=== PATIENT | male | born 1955 | race Caucasian/White ===

== ENCOUNTER 2022-10-27 15:08 | Outpatient (CLI) | payer MEDICARE, OTHER, SELFPAY | END 2022-10-27 15:09 | disposition home or self-care (01) | LOC: AMB 12-14 16:59 | PROVIDERS: PCP Family Medicine; Visit Provider Emergency Medicine Emergency Medical Services | DX: R56.9 Unspecified convulsions (principal) | CPT/HCPCS: A0425; A0427 ==

== ENCOUNTER 2022-10-27 15:45 | Emergency (ER) | payer MEDICARE, OTHER, SELFPAY ==
[2022-10-27] VITALS (13 sets, daily range): BP systolic 125–139; BP diastolic 62–97; PULSE 49–82; TEMP 36.4; O2SAT 95–99; BMI 24.4
[2022-10-27 16:23] LABS: Troponin, Point-of-Care* 0.01 ng/ml (0.01-0.04)
--- NOTE | 2022-10-27 16:31 | CRLHL7_ITS ---
For Patients: As a result of the Century Cures Act, medical imaging exams and procedure reports are released immediately into your electronic medical record. You may view this report before your referring provider. If you have questions, please contact your health care provider. INDICATION: Seizure TECHNIQUE: CT head without contrast. COMPARISON: None FINDINGS: CSF spaces: Within normal limits for age. Brain parenchyma: The barragan-white differentiation is normal. No sign of mass, hemorrhage, or midline shift. Skull base and calvarium: The visualized paranasal sinuses and mastoid air cells demonstrate no acute or significant findings. The visualized orbits are grossly unremarkable. No skull fractures. IMPRESSION: Unremarkable noncontrast head CT. Dictated by Ricky West MD @ 10/27/2022 5:46:51 PM Please note that all CT scans at this facility use dose modulation, iterative reconstruction, and/or weight-based dosing when appropriate to reduce radiation dose to as low as reasonably achievable. Dictated by: Ricky West MD @ 10/27/2022 17:46:59 (Electronically Signed)
--- NOTE | 2022-10-27 16:33 | ED.GENADULT ---
HPI - General Adult General Chief complaint: Seizure Stated complaint: Seizures Time Seen by Provider: 10/27/22 16:06 History of Present Illness HPI narrative: This 67-year-old male comes in by ambulance because of an event that looked to bystanders to be like a seizure. Patient states that he was in [employer] and notice that the neon lights started to bother him. He states that he has had this kind of sensitivity in the past. He was attempting to get out of there and began to feel lightheaded. On the way back to his car he collapsed and had loss of consciousness. Bystanders said he had seizure-like activity. The patient states that he remembers waking up in the ambulance. An IV was established and he did receive a dose of Ativan. The patient states that he had a similar situation when he lived in [place] some years ago. He notes that he has sensitivity to neon lights. He states that he is taking Effexor and wonders if this medicine is contributing to his symptoms. He is currently tapering off from 150 mg daily now to 112.5 mg daily. He did not have any injury. He does not report a headache. He states that he is otherwise healthy. Related Data Home Medications Medication Instructions Recorded Confirmed alendronate 70 mg tablet mg PO 10/27/22 chlorthalidone 25 mg tablet mg 10/27/22 levothyroxine 175 mcg tablet mcg 10/27/22 (Synthroid) losartan 100 mg tablet mg 10/27/22 pramipexole 0.125 mg tablet mg 10/27/22 ropinirole 0.25 mg tablet mg 10/27/22 ropinirole 1 mg tablet mg 10/27/22 rosuvastatin 20 mg tablet mg 10/27/22 trazodone 50 mg tablet mg 10/27/22 venlafaxine 150 mg mg PO 10/27/22 capsule,extended release 24 hr venlafaxine 37.5 mg mg PO 10/27/22 capsule,extended release 24 hr Previous Rx's Medication Instructions Recorded lorazepam 0.5 mg tablet (Ativan) 0.5 mg PO BID PRN #10 tabs 10/27/22 Allergies Allergy/AdvReac Type Severity Reaction Status Date / Time No Known Drug Allergies Allergy Verified 10/27/22 15:53 Review of Systems Status of ROS: Reports: 10 or more systems reviewed and unremarkable except as noted in History and below Narrative: Constitutional: No fevers, no weight gain or loss. Eyes: No discharge. No vision changes. HENT: No congestion, no sore throat, no ear pain. Cardiovascular: No chest pain, no palpitations. Respiratory: No shortness of breath, no wheezes, no cough. Gastrointestinal: No abdominal pain, no vomiting, no diarrhea. Genitourinary: No dysuria, no hematuria. Musculoskeletal: Normal range of motion. Skin: No rashes, no pruritis. Neurological: No dizziness, weakness, sensory change, speech change. Endo/Heme/Allergies: No bruising or bleeding. No polydipsia. Pysch: no suicidality, no anxiety, no insomnia. All other systems reviewed and are negative. Exam Narrative: Exam Narrative: Constitutional: Well-developed, well-nourished, no acute distress. HEENT: Normocephalic, atraumatic. Neck: Normal range of motion. Nontender. Supple. Heart: Regular. No murmurs. Normal rate. Intact distal pulses. Lungs: Clear to auscultation. No chest discomfort. No wheezes, rhonchi, or rales. Abdomen: Normal bowel sounds. Nontender. No rebound tenderness. Genitalia: Deferred. Back: No midline tenderness. Normal range of motion. Extremities: Normal range of motion. No injury. Skin: Intact. No rash. Warm. No erythema or pallor. Neurologic: No altered sensation. No weakness. Alert and oriented. Psychiatric: No suicidality. No anxiety or depression. No insomnia. Nursing notes and vitals signs are reviewed. Const: Vital Signs, click to edit/add: Vital Signs - 24 hr 10/27/22 15:47 10/27/22 16:00 10/27/22 16:13 Temperature 97.6 F Pulse Rate 77 Pulse Rate [Right] 55 L Blood Pressure Blood Pressure [Le ft Upper Arm] 139/97 H 125/62 Pulse Oximetry 96 96 Oxygen Delivery Me thod Room Air 10/27/22 16:15 10/27/22 16:30 10/27/22 16:31 Temperature Pulse Rate 64 50 L 49 L Pulse Rate [Right] Blood Pressure 136/73 Blood Pressure [Le ft Upper Arm] Pulse Oximetry 95 96 96 Oxygen Delivery Me thod 10/27/22 16:45 10/27/22 17:00 10/27/22 17:01 Temperature Pulse Rate 82 77 76 Pulse Rate [Right] Blood Pressure 127/67 Blood Pressure [Le ft Upper Arm] Pulse Oximetry 95 98 97 Oxygen Delivery Me thod 10/27/22 17:15 10/27/22 17:45 Temperature Pulse Rate 63 80 Pulse Rate [Right] Blood Pressure Blood Pressure [Le ft Upper Arm] Pulse Oximetry 95 99 Oxygen Delivery Me thod Course Vital Signs Vital signs: Initial Vital Signs Temperature 97.6 F 10/27/22 15:47 Temperature Source Temporal Artery Scan 10/27/22 15:47 Pulse Rate 55 L 10/27/22 15:47 Blood Pressure 139/97 H 10/27/22 15:47 Blood Pressure Mean 111 10/27/22 15:47 Blood Pressure Position Supine 10/27/22 15:47 Pulse Oximetry 96 10/27/22 15:47 Oxygen Delivery Method 10/27/22 15:47 Vital Signs Temperature 97.6 F 10/27/22 15:47 Pulse Rate 55 L 10/27/22 15:47 Blood Pressure 139/97 H 10/27/22 15:47 Pulse Oximetry 96 10/27/22 15:47 Oxygen Delivery Method 10/27/22 15:47 Temperature 97.6 F 10/27/22 15:47 Pulse Rate 80 10/27/22 17:45 Blood Pressure 127/67 10/27/22 17:01 Pulse Oximetry 99 10/27/22 17:45 Oxygen Delivery Method 10/27/22 15:47 Medical Decision Making MDM Narrative Medical decision making narrative: This patient comes in with symptoms that are suspicious for a seizure that is induced by the lytes in a large business facility. He has had symptoms like this in the past. He is taking Effexor which can be contributing to this occurrence. He is weaning off of this medicine slowly and has ongoing relationship with his primary physician in this regard. He did receive a dose of Ativan prior to arrival. CT scan of his head and lab results here returned with normal findings. He is okay to be discharged home with his . I did provide prescription for some tablets of Ativan. He understands that this is not a good long-term plan but may give him some relief of his anxiety symptoms as well as seizure preventative benefit. Lab Data Labs: Lab Results 12/08/22 12/08/22 12/08/22 Range/Units 16:03 16:03 16:03 WBC 7.64 (4.50-11.00) K/uL RBC 4.15 L (4.30-5.90) m/uL Hgb 13.9 (13.5-17.5) gm/dL Hct 40.9 (37.0-53.0) % MCV 99 (80-100) fL MCH 34 (26-34) pg MCHC 34 (32-36) gm/dL RDW Coeff of Mina 12.0 (11.5-15.5) % Plt Count 195 (140-440) K/uL Neut % (Auto) 67.0 (42.0-72.0) % Lymph % (Auto) 21.9 (20-44) % [place] % (Auto) 8.9 (0.0-11.0) % Eos % (Auto) 1.6 (0.0-7.0) % Baso % (Auto) 0.3 (0.0-3.0) % Neut # (Auto) 5.13 (1.7-7.0) K/uL Lymph # (Auto) 1.67 (0.90-2.90) K/uL [place] # (Auto) 0.70 (0.00-0.90) K/UL Eos # (Auto) 0.12 (0.00-0.50) K/uL Baso # (Auto) 0.02 (0.00-0.30) K/uL Abs Immat Gran (auto) 0.02 (0.00-0.30) K/uL Imm/Tot Granulo (auto) 0.3 % Sodium 139 (135-149) mmol/L Potassium 3.4 L (3.6-5.1) mmol/L Chloride 103 (96-114) mmol/L Carbon Dioxide 25 (20-32) mmol/L BUN 21 (7-30) mg/dL Creatinine 1.1 (0.5-1.5) mg/dL Estimated Creat Clear 72.51 Estimated GFR 74 ml/min Glucose 103 (60-115) mg/dL Calcium 7.2 L (8.4-10.6) mg/dL C-Reactive Protein < 0.5 L (0.5-1.0) mg/dL Urine Opiates Screen (Negative) Ur Oxycodone Screen (Negative) Urine Methadone Screen (Negative) Ur Propoxyphene Screen (Negative) Ur Barbiturates Screen (Negative) U Tricyclic Antidepress (Negative) Ur Phencyclidine Scrn (Negative) Ur Amphetamines Screen (Negative) U Methamphetamines Scrn (Negative) U Benzodiazepines Scrn (Negative) Urine Cocaine Screen (Negative) U Marijuana (THC) Screen (Negative) Ur Drug Screen Comment POC Troponin I (0.01-0.04) ng/ml 10/27/22 10/27/22 Range/Units 16:22 17:10 WBC (4.50-11.00) K/uL RBC (4.30-5.90) m/uL Hgb (13.5-17.5) gm/dL Hct (37.0-53.0) % MCV (80-100) fL MCH (26-34) pg MCHC (32-36) gm/dL RDW Coeff of Mina (11.5-15.5) % Plt Count (140-440) K/uL Neut % (Auto) (42.0-72.0) % Lymph % (Auto) (20-44) % [place] % (Auto) (0.0-11.0) % Eos % (Auto) (0.0-7.0) % Baso % (Auto) (0.0-3.0) % Neut # (Auto) (1.7-7.0) K/uL Lymph # (Auto) (0.90-2.90) K/uL [place] # (Auto) (0.00-0.90) K/UL Eos # (Auto) (0.00-0.50) K/uL Baso # (Auto) (0.00-0.30) K/uL Abs Immat Gran (auto) (0.00-0.30) K/uL Imm/Tot Granulo (auto) % Sodium (135-149) mmol/L Potassium (3.6-5.1) mmol/L Chloride (96-114) mmol/L Carbon Dioxide (20-32) mmol/L BUN (7-30) mg/dL Creatinine (0.5-1.5) mg/dL Estimated Creat Clear Estimated GFR ml/min Glucose (60-115) mg/dL Calcium (8.4-10.6) mg/dL C-Reactive Protein (0.5-1.0) mg/dL Urine Opiates Screen Negative (Negative) Ur Oxycodone Screen Negative (Negative) Urine Methadone Screen Negative (Negative) Ur Propoxyphene Screen Negative (Negative) Ur Barbiturates Screen Negative (Negative) U Tricyclic Antidepress Negative (Negative) Ur Phencyclidine Scrn Negative (Negative) Ur Amphetamines Screen Negative (Negative) U Methamphetamines Scrn Negative (Negative) U Benzodiazepines Scrn Negative (Negative) Urine Cocaine Screen Negative (Negative) U Marijuana (THC) Screen POSITIVE A* (Negative) Ur Drug Screen Comment See Note POC Troponin I 0.01 (0.01-0.04) ng/ml Imaging Data CT scan - head: Radiologist's impression: Unremarkable noncontrast head CT. ECG Data Attestation: I personally reviewed and interpreted this ECG as follows: Interpretation: Normal sinus rhythm with premature ventricular complexes. Rate is 100 beats per minute. There are no ST or T-wave abnormalities. Discharge Plan Discharge Clinical Impression: Generalized seizure Patient Disposition: Home, Self-Care Condition: Stable Additional Instructions: Follow-up with primary physician to review medications. Return if recurrent or worsening symptoms happen. Prescriptions: New lorazepam [Ativan] 0.5 mg tablet 0.5 mg PO BID PRNQty: 10 0RF No Action levothyroxine [Synthroid] 175 mcg tablet venlafaxine 37.5 mg capsule,extended release 24hr PO ropinirole 1 mg tablet trazodone 50 mg tablet alendronate 70 mg tablet PO venlafaxine 150 mg capsule,extended release 24hr PO chlorthalidone 25 mg tablet ropinirole 0.25 mg tablet pramipexole 0.125 mg tablet losartan 100 mg tablet rosuvastatin 20 mg tablet Follow Up/Referrals: Carmen Kingston PA-C [Primary Care Provider] - Stand Alone Forms: [email or web address] Info Instructions
[2022-10-27 16:45] LABS: Basophils Absolute Auto 0.02 K/uL (0.00-0.30); Basophils Percent Auto 0.3 % (0.0-3.0); Eosinophils Absolute Auto 0.12 K/uL (0.00-0.50); Eosinophils Percent Auto 1.6 % (0.0-7.0); Hematocrit 40.9 % (37.0-53.0); Hemoglobin* 13.9 gm/dL (13.5-17.5); Immature Granulocytes Abs Auto 0.02 K/uL (0.00-0.30); Immature Granulocytes Pct Auto 0.3 %; Lymphocytes Absolute Auto 1.67 K/uL (0.90-2.90); Lymphocytes Percent Auto 21.9 % (20-44); Mean Corpuscular HGB Conc 34 gm/dL (32-36); Mean Corpuscular Hemoglobin 34 pg (26-34); Mean Corpuscular Volume 99 fL (80-100); Monocytes Percent Auto 8.9 % (0.0-11.0); Neutrophils Absolute Auto 5.13 K/uL (1.7-7.0); Platelet Count* 195 K/uL (140-440); Red Blood Count 4.15 m/uL (4.30-5.90); White Blood Count* 7.64 K/uL (4.50-11.00)
[2022-10-27 16:46] LABS: Slide Review Reflex No
[2022-10-27 16:48] LABS: Chloride* 103 mmol/L (96-114); Potassium* 3.4 mmol/L (3.6-5.1); Sodium* 139 mmol/L (135-149)
[2022-10-27 16:51] LABS: Blood Urea Nitrogen* 21 mg/dL (7-30); Carbon Dioxide* 25 mmol/L (20-32); Creatinine* 1.1 mg/dL (0.5-1.5); Est. Creatinine Clearance* 72.51; Estimated Glomerular Filt Rate 74 ml/min; Glucose* 103 mg/dL (60-115)
[2022-10-27 16:52] LABS: Calcium* 7.2 mg/dL (8.4-10.6)
[2022-10-27 16:58] LABS: C Reactive Protein* < 0.5 mg/dL (0.5-1.0)
[2022-10-27] MEDS: 0.9 % SODIUM CHLORIDE 500 ML 500 ML IV (17:22)
[2022-10-27 17:37] LABS: Amphetamine Screen Urine Negative (Negative); Barbiturate Screen Urine Negative (Negative); Benzodiazepines Screen Urine Negative (Negative); Cocaine Screen Urine Negative (Negative); Methadone Screen Urine Negative (Negative); Methamphetamines Screen Urine Negative (Negative); Opiate Screen Urine Negative (Negative); Oxycodone Screen Urine Negative (Negative); Phencyclidine Screen Urine Negative (Negative); Tricyclic Antidepressant Urine Negative (Negative)
[2022-10-27 17:45] LABS: Cannabinoid Screen Urine POSITIVE (Negative)
== END 2022-10-27 18:25 | disposition home or self-care (01) ==
PROVIDERS: Emergency Provider Emergency Medicine Emergency Medical Services; PCP Family Medicine
DX: R56.9 Unspecified convulsions (principal)
CPT/HCPCS: 36415; 70450; 80048; 80306; 84484; 85025; 86140; 99284; 99285; A0425; A0427; J7120

== ENCOUNTER 2023-08-22 14:15 | Emergency (ER) | payer MEDICARE, SELFPAY ==
[2023-08-22] VITALS (21 sets, daily range): BP systolic 105–146; BP diastolic 79–102; PULSE 37–65; RESP 18; TEMP 37; O2SAT 78–100; BMI 23.7
--- NOTE | 2023-08-22 14:51 | ED.GENADULT ---
HPI - General Adult General Chief complaint: Weakness Stated complaint: Slurred speech, numb legs Time Seen by Provider: 08/22/23 14:31 History of Present Illness HPI narrative: This 67-year-old male comes in because of change in his speech and feeling off balance. He has been having symptoms like this over the past several months and was at a psychiatric appointment today. He was sent home from this appointment. His took him and brought him here for evaluation because of feeling that his speech is different. At home today he states that he fell a going up stairs. He did not injure himself but states that he says his legs did not want to cooperate to move in the right direction to maintain his balance. He is on several medications. He states that some of them are new but he was unable to clarify which medicine her medicines are new for him. Related Data Home Medications Medication Instructions Recorded Confirmed alendronate 70 mg tablet mg PO 10/27/22 chlorthalidone 25 mg tablet mg 10/27/22 levothyroxine 175 mcg tablet 175 mcg PO DAILY 10/27/22 08/22/23 (Synthroid) losartan 100 mg tablet 100 mg PO DAILY 10/27/22 08/22/23 pramipexole 0.125 mg tablet mg 10/27/22 ropinirole 0.25 mg tablet 3 mg PO DAILY 10/27/22 08/22/23 ropinirole 1 mg tablet mg 10/27/22 rosuvastatin 20 mg tablet 20 mg PO DAILY 10/27/22 08/22/23 trazodone 50 mg tablet mg 10/27/22 venlafaxine 150 mg mg PO 10/27/22 capsule,extended release 24 hr venlafaxine 37.5 mg mg PO 10/27/22 capsule,extended release 24 hr bupropion HCl 300 mg 24 hr tablet, 300 mg PO DAILY 08/22/23 08/22/23 extended release clonazepam 0.5 mg tablet 0.5 mg PO QPM 08/22/23 08/22/23 fluvoxamine 100 mg 200 mg PO DAILY 08/22/23 08/22/23 capsule,extended release 24 hr hydrochlorothiazide 12.5 mg tablet 25 mg PO DAILY 08/22/23 08/22/23 meloxicam 15 mg tablet 15 mg PO DAILY PRN 08/22/23 08/22/23 propranolol 20 mg tablet 20 mg PO BID 08/22/23 08/22/23 Previous Rx's Medication Instructions Recorded lorazepam 0.5 mg tablet (Ativan) 0.5 mg PO BID PRN #10 tabs 10/27/22 Allergies Allergy/AdvReac Type Severity Reaction Status Date / Time No Known Drug Allergies Allergy Verified 08/22/23 14:24 Review of Systems Status of ROS: Reports: 10 or more systems reviewed and unremarkable except as noted in History and below Narrative: Constitutional: No fevers, no weight gain or loss. Eyes: No discharge. No vision changes. HENT: No congestion, no sore throat, no ear pain. Cardiovascular: No chest pain, no palpitations. Respiratory: No shortness of breath, no wheezes, no cough. Gastrointestinal: No abdominal pain, no vomiting, no diarrhea. Genitourinary: No dysuria, no hematuria. Musculoskeletal: Normal range of motion. Skin: No rashes, no pruritis. Neurological: No dizziness, weakness, sensory change. The patient's states that his speech is different.. Endo/Heme/Allergies: No bruising or bleeding. No polydipsia. Pysch: no suicidality, no anxiety, no insomnia. All other systems reviewed and are negative. PFSH PFSH Social History Smoking Status: Never smoker Do you use any of these nicotine containing products: None Second hand tobacco smoke exposure: No How often do you have a drink containing alcohol: 4 or more times a week How many standard drinks containing alcohol do you have on a typical day: 1 or 2 How often do you have six or more drinks on one occasion: Daily or almost daily AUDIT-C Alcohol total score: 8 Non-prescribed substance use: marijuana (any form) service: No Exam Narrative: Exam Narrative: Constitutional: Well-developed, well-nourished, no acute distress. HEENT: Normocephalic, atraumatic. Neck: Normal range of motion. Nontender. Supple. Heart: Regular. No murmurs. Normal rate. Intact distal pulses. Lungs: Clear to auscultation. No chest discomfort. No wheezes, rhonchi, or rales. Abdomen: Normal bowel sounds. Nontender. No rebound tenderness. Genitalia: Deferred. Back: No midline tenderness. Normal range of motion. Extremities: Normal range of motion. No injury. Skin: Intact. No rash. Warm. No erythema or pallor. Neurologic: No altered sensation. No weakness. Alert and oriented. No facial asymmetry. Tongue is midline. [id number]-[id number] is normal. Speech is understandable and seems to be typical for his baseline. The patient's states that there are some episodes where his speech is altered. [place] strength is equal bilaterally. No pronator drift. He is able to raise each leg from the bed to my hand. Psychiatric: No suicidality. No anxiety or depression. No insomnia. Nursing notes and vitals signs are reviewed. Const: Vital Signs, click to edit/add: Vital Signs - 24 hr 08/22/23 14:27 08/22/23 14:34 08/22/23 14:35 Temperature 98.6 F Pulse Rate 65 59 L Pulse Rate [Pulse Oximeter] 64 Respiratory Rate 18 Blood Pressure 122/90 H Blood Pressure [Le ft Upper Arm] 134/102 H Pulse Oximetry 97 97 97 [facility] Room Air 08/22/23 14:45 08/22/23 15:06 08/22/23 15:07 Temperature Pulse Rate 61 60 Pulse Rate [Pulse Oximeter] Respiratory Rate Blood Pressure 146/88 H Blood Pressure [Le ft Upper Arm] Pulse Oximetry 96 90 98 [facility] 08/22/23 15:15 08/22/23 15:30 08/22/23 15:33 Temperature Pulse Rate 58 L 56 L 54 L Pulse Rate [Pulse Oximeter] Respiratory Rate Blood Pressure 136/88 Blood Pressure [Le ft Upper Arm] Pulse Oximetry 95 98 98 [facility] 08/22/23 15:45 08/22/23 16:00 08/22/23 16:02 Temperature Pulse Rate 56 L 56 L Pulse Rate [Pulse Oximeter] Respiratory Rate Blood Pressure 109/93 H Blood Pressure [Le ft Upper Arm] Pulse Oximetry 98 96 97 Oxygen Delivery De thod 08/22/23 16:15 08/22/23 16:30 08/22/23 16:34 Temperature Pulse Rate 51 L 40 L 41 L Pulse Rate [Pulse Oximeter] Respiratory Rate Blood Pressure 140/79 H Blood Pressure [Le ft Upper Arm] Pulse Oximetry 82 L 100 78 L Oxygen Delivery [facility] 08/22/23 16:45 Temperature Pulse Rate 38 L Pulse Rate [Pulse Oximeter] Respiratory Rate Blood Pressure Blood Pressure [Le ft Upper Arm] Pulse Oximetry 98 Oxygen Delivery Me thod Course Vital Signs Vital signs: Initial Vital Signs Temperature 98.6 F 08/22/23 14:27 Temperature Source Temporal Artery Scan 08/22/23 14:27 Pulse Rate 64 08/22/23 14:27 Respiratory Rate 18 08/22/23 14:27 Blood Pressure 134/102 H 08/22/23 14:27 Blood Pressure Mean 112 H 08/22/23 14:27 Blood Pressure Position Semi-Fowlers 08/22/23 14:27 Pulse Oximetry 97 08/22/23 14:27 Oxygen Delivery Method Room Air 08/22/23 14:27 Vital Signs Temperature 98.6 F 08/22/23 14:27 Pulse Rate 64 08/22/23 14:27 Respiratory Rate 18 08/22/23 14:27 Blood Pressure 134/102 H 08/22/23 14:27 Pulse Oximetry 97 08/22/23 14:27 Oxygen Delivery Method Room Air 08/22/23 14:27 Temperature 98.6 F 08/22/23 14:27 Pulse Rate 38 L 08/22/23 16:45 Respiratory Rate 18 08/22/23 14:27 Blood Pressure 140/79 H 08/22/23 16:34 Pulse Oximetry 98 08/22/23 16:45 Oxygen Delivery Method Room Air 08/22/23 14:27 Medical Decision Making MDM Narrative Medical decision making narrative: This patient comes in with fluctuating symptoms of dyskinesia and speech change according to his . His neurologic exam is completely normal. I did discuss the role of CT imaging of his head and in a process of shared decision making the patient declined this stating that he has had a CT scan of his head somewhat recently. Lab results returned with a TSH at 0.025. He is on thyroxine as he has had his thyroid removed. He may be overdosed on his thyroid medication in this may be triggering some EKG findings of increased PVCs. Additionally vitamin B12 is a bit low at 209 with normal range of 243-894. The patient is taking rimipirole for restless leg syndrome. This medicine may cause some affects of dyskinesia. I relayed these results to the patient and his . His symptoms have improved. I encouraged him to follow-up with his primary physicians to review the medications. Lab Data Labs: Lab Results 08/22/23 08/22/2323 Range/Units 14:30 14:50 15:00 WBC 5.95 (4.50-11.00) K/uL RBC 4.80 (4.30-5.90) m/uL Hgb 15.9 (13.5-17.5) gm/dL Hct 47.3 (37.0-53.0) % MCV 99 (80-100) fL MCH 33 (26-34) pg MCHC 34 (32-36) gm/dL RDW Coeff of Mina 11.7 (11.5-15.5) % Plt Count 207 (140-440) K/uL Neut % (Auto) 61.9 (42.0-72.0) % Lymph % (Auto) 20.7 (20-44) % [place] % (Auto) 12.3 H (0.0-11.0) % Eos % (Auto) 3.0 (0.0-7.0) % Baso % (Auto) 0.8 (0.0-3.0) % Neut # (Auto) 3.68 (1.7-7.0) K/uL Lymph # (Auto) 1.23 (0.90-2.90) K/uL [place] # (Auto) 0.70 (0.00-0.90) K/UL Eos # (Auto) 0.18 (0.00-0.50) K/uL Baso # (Auto) 0.05 (0.00-0.30) K/uL Abs Immat Gran (auto) 0.08 (0.00-0.30) K/uL Imm/Tot Granulo (auto) 1.3 % Sodium 144 (135-149) mmol/L Potassium 3.8 (3.6-5.1) mmol/L Chloride 102 (96-114) mmol/L Carbon Dioxide 28 (20-32) mmol/L Anion Gap 14 (7-15) mEq/L BUN 23 (7-30) mg/dL Creatinine 1.4 (0.5-1.5) mg/dL Estimated Creat Clear 56.97 Estimated GFR 55 ml/min Glucose 104 (60-115) mg/dL Calcium 8.0 L (8.4-10.6) mg/dL Total Bilirubin 0.6 (0.1-1.5) mg/dL Direct Bilirubin 0.0 (0.0-0.5) mg/dL AST 40 H (12-35) U/L ALT 49 (4-50) U/L Alkaline Phosphatase 69 (40-150) U/L C-Reactive Protein < 0.5 L (0.5-1.0) mg/dL Total Protein 7.6 (6.0-8.3) g/dL Albumin 4.6 (3.3-5.0) g/dL Vitamin B12 209 L (243-894) pg/mL TSH 0.025 L (0.270-4.20) uIU/mL Urine Color Yellow (Yellow) Urine Appearance Clear (Clear) Urine pH 6.5 (5.0-8.5) Ur Specific [place] 1.010 (1.000-1.030) Urine Protein Negative (Negative) Urine Glucose (UA) Negative (Negative) Urine Ketones Negative (Negative) Urine Blood Negative (Negative) Urine Nitrite Negative (Negative) Urine Bilirubin Negative (Negative) Urine Urobilinogen 0.2 (0.2-1.0) Ur Leukocyte Esterase Negative (Negative) Urine RBC 2-5 A (0-2) Urine WBC 2-5 (0-5) Ur Squamous Epith Cells Few (None-Few) Urine Bacteria Few A (None) Urine Opiates Screen Negative (Negative) Ur Oxycodone Screen Negative (Negative) Urine Methadone Screen Negative (Negative) Ur Propoxyphene Screen Negative (Negative) Ur Barbiturates Screen Negative (Negative) U Tricyclic Antidepress Negative (Negative) Ur Phencyclidine Scrn Negative (Negative) Ur Amphetamines Screen POSITIVE A (Negative) U Methamphetamines Scrn Negative (Negative) U Benzodiazepines Scrn Negative (Negative) Urine Cocaine Screen Negative (Negative) U Marijuana (THC) Screen POSITIVE A (Negative) Ur Drug Screen Comment See Note Ethyl Alcohol < 0.01 L (0.01-0.03) % ECG Data Attestation: I personally reviewed and interpreted this ECG as follows: Interpretation: EKG shows normal sinus rhythm with frequent PVCs in a pattern of trigeminy. There are no specific ST or T-wave abnormalities. Rate is 65 beats per minute. A 2nd EEG kg shows similar findings with a rate at 54 beats per minute. Discharge Plan Discharge Clinical Impression: Frequent PVCs, Dyskinesia Patient Disposition: Home w/ Parent or Adult Condition: Improved Additional Instructions: Continue current plans. Follow up with primary physician's to review medications. Return if worsening. Prescriptions: No Action levothyroxine [Synthroid] 175 mcg tablet 175 mcg PO DAILY venlafaxine 37.5 mg capsule,extended release 24hr PO ropinirole 1 mg tablet trazodone 50 mg tablet alendronate 70 mg tablet PO venlafaxine 150 mg capsule,extended release 24hr PO chlorthalidone 25 mg tablet ropinirole 0.25 mg tablet 3 mg PO DAILY pramipexole 0.125 mg tablet losartan 100 mg tablet 100 mg PO DAILY rosuvastatin 20 mg tablet 20 mg PO DAILY lorazepam [Ativan] 0.5 mg tablet 0.5 mg PO BID PRNQty: 10 0RF propranolol 20 mg tablet 20 mg PO BID fluvoxamine 100 mg capsule,extended release 24hr 200 mg PO DAILY bupropion HCl 300 mg tablet extended release 24 hr 300 mg PO DAILY meloxicam 15 mg tablet 15 mg PO DAILY PRN clonazepam 0.5 mg tablet 0.5 mg PO QPM hydrochlorothiazide 12.5 mg tablet 25 mg PO DAILY Follow Up/Referrals: Astrid Dasilva DO [Primary Care Provider] - Stand Alone Forms: [facility] Info Instructions
[2023-08-22 15:08] LABS: Appearance Urine Clear (Clear); Bilirubin Urine Negative (Negative); Blood Urine Negative (Negative); Color Urine Yellow (Yellow); Glucose Urine Negative (Negative); Ketones Urine Negative (Negative); Leukocyte Esterase Urine Negative (Negative); Nitrite Urine Negative (Negative); Protein Urine Negative (Negative); Urobilinogen Urine 0.2 (0.2-1.0); pH Urine 6.5 (5.0-8.5)
[2023-08-22 15:11] LABS: Basophils Absolute Auto 0.05 K/uL (0.00-0.30); Basophils Percent Auto 0.8 % (0.0-3.0); Eosinophils Absolute Auto 0.18 K/uL (0.00-0.50); Hematocrit 47.3 % (37.0-53.0); Hemoglobin* 15.9 gm/dL (13.5-17.5); Immature Granulocytes Abs Auto 0.08 K/uL (0.00-0.30); Immature Granulocytes Pct Auto 1.3 %; Lymphocytes Absolute Auto 1.23 K/uL (0.90-2.90); Lymphocytes Percent Auto 20.7 % (20-44); Mean Corpuscular HGB Conc 34 gm/dL (32-36); Mean Corpuscular Hemoglobin 33 pg (26-34); Mean Corpuscular Volume 99 fL (80-100); Monocytes Percent Auto 12.3 % (0.0-11.0); Neutrophils Absolute Auto 3.68 K/uL (1.7-7.0); Neutrophils Percent Auto 61.9 % (42.0-72.0); Platelet Count* 207 K/uL (140-440); RDW Coefficient of Variation % 11.7 % (11.5-15.5); White Blood Count* 5.95 K/uL (4.50-11.00)
[2023-08-22 15:19] LABS: Amphetamine Screen Urine POSITIVE (Negative); Barbiturate Screen Urine Negative (Negative); Benzodiazepines Screen Urine Negative (Negative); Cannabinoid Screen Urine POSITIVE (Negative); Cocaine Screen Urine Negative (Negative); Methadone Screen Urine Negative (Negative); Methamphetamines Screen Urine Negative (Negative); Opiate Screen Urine Negative (Negative); Oxycodone Screen Urine Negative (Negative); Phencyclidine Screen Urine Negative (Negative); Tricyclic Antidepressant Urine Negative (Negative)
[2023-08-22 15:20] LABS: Bacteria Urine Few; Squamous Epithelial Cell Urine Few (None-Few)
[2023-08-22 15:22] LABS: Slide Review Reflex No
[2023-08-22 15:33] LABS: Albumin* 4.6 g/dL (3.3-5.0); Chloride* 102 mmol/L (96-114)
[2023-08-22 15:34] LABS: Potassium* 3.8 mmol/L (3.6-5.1); Sodium* 144 mmol/L (135-149)
[2023-08-22 15:36] LABS: Creatinine* 1.4 mg/dL (0.5-1.5); Est. Creatinine Clearance* 56.97; Estimated Glomerular Filt Rate 55 ml/min
[2023-08-22 15:37] LABS: Alanine Aminotransferase* 49 U/L (4-50); Alkaline Phosphatase* 69 U/L (40-150); Anion Gap 14 mEq/L (7-15); Aspartate Amino Transferase* 40 U/L (12-35); Bilirubin Total* 0.6 mg/dL (0.1-1.5); Blood Urea Nitrogen* 23 mg/dL (7-30); Carbon Dioxide* 28 mmol/L (20-32); Glucose* 104 mg/dL (60-115); Total Protein* 7.6 g/dL (6.0-8.3)
[2023-08-22 15:39] LABS: Ethanol* < 0.01 % (0.01-0.03)
[2023-08-22 15:46] LABS: C Reactive Protein* < 0.5 mg/dL (0.5-1.0)
[2023-08-22 16:26] LABS: Vitamin B12* 209 pg/mL (243-894)
[2023-08-22 16:38] LABS: Thyroid Stimulating Hormone* 0.025 uIU/mL (0.270-4.20)
[2023-08-22 18:29] LABS: Free T4 Free Thyroxine* 1.85 ng/dL (0.70-1.85)
[2023-08-25 03:05] LABS: Free T3 3.4 pg/mL (2.5-4.3)
== END 2023-08-22 17:52 | disposition home or self-care (01) ==
PROVIDERS: Emergency Provider Emergency Medicine Emergency Medical Services; PCP Family Medicine
DX: G24.9 Dystonia, unspecified (principal); I49.3 Ventricular premature depolarization
CPT/HCPCS: 36415; 80048; 80076; 80306; 81001; 82077; 82607; 84439; 84443; 84481; 85025; 86140; 87086; 93005; 99284

== ENCOUNTER 2023-08-30 14:16 | Outpatient (CLI) | payer MEDICARE, SELFPAY | END 2023-08-30 14:17 | disposition home or self-care (01) | LOC: AMB 09-01 10:18 | PROVIDERS: PCP Family Medicine; Visit Provider Family Medicine | DX: R56.9 Unspecified convulsions (principal) | CPT/HCPCS: A0425; A0427 ==

== ENCOUNTER 2023-08-30 14:36 | Emergency (ER) | payer MEDICARE, SELFPAY ==
[2023-08-30] VITALS (11 sets, daily range): BP systolic 109–140; BP diastolic 80–90; PULSE 46–86; RESP 16; TEMP 37.4; O2SAT 92–96; BMI 23.6
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
--- NOTE | 2023-08-30 15:07 | ED.NURSE ---
EMS reported a history of seizure like activity previously from this patient in which he was found down at [employer] in [place]. This senior medical writer asked pt if he has ever seen neurology for these episodes. He denies this. Dr. Zamuido informed. Seizure pads in place on bed. Vitals being assessed Q 30 minutes. present at bedside. monitoring analyst in place.
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
[2023-08-30] MEDS: 0.9 % SODIUM CHLORIDE 1000 ml 1,000 ML IV (16:25)
== END 2023-08-30 18:02 | disposition home or self-care (01) ==
PROVIDERS: Emergency Provider Family Medicine; PCP Family Medicine
DX: R55 Syncope and collapse (principal); I49.3 Ventricular premature depolarization; F41.9 Anxiety disorder, unspecified
CPT/HCPCS: 70450; 93005; 99284; J7030

== ENCOUNTER 2023-09-11 13:53 | Outpatient (CLI) | payer MEDICARE, SELFPAY | END 2023-09-11 13:54 | disposition home or self-care (01) | LOC: AMB 09-16 15:15 | PROVIDERS: PCP Family Medicine; Visit Provider Family Medicine | DX: G40.409 Other generalized epilepsy and epileptic syndromes, not intractable, without status epilepticus (principal) | CPT/HCPCS: A0425; A0427 ==

== ENCOUNTER 2023-09-11 14:25 | Emergency (ER) | payer MEDICARE, SELFPAY ==
[2023-09-11 14:26] VITALS: BP 128/84; PULSE 78; RESP 18; TEMP 36.5; O2SAT 94
[2023-09-11 15:08] VITALS: BP 125/83; PULSE 73; RESP 14; O2SAT 95
--- NOTE | 2023-09-11 15:16 | CRLHL7_ITS ---
For Patients: As a result of the Century Cures Act, medical imaging exams and procedure reports are released immediately into your electronic medical record. You may view this report before your referring provider. If you have questions, please contact your health care provider. INDICATION: Seizure. TECHNIQUE: CT head without contrast. COMPARISON: August 30, 2023. FINDINGS: CSF spaces: Mild diffuse parenchymal volume loss. Brain parenchyma and extra-axial spaces: Mild chronic white matter ischemic disease. The barragan-white differentiation is normal. No sign of mass, hemorrhage, or midline shift. No extra-axial fluid collection. Skull base and calvarium: Moderate right maxillary sinus mucoperiosteal thickening. Otherwise, the visualized paranasal sinuses and mastoid air cells demonstrate no acute or significant findings. The visualized orbits are grossly unremarkable. No skull fractures. IMPRESSION: No acute intracranial abnormality on this noncontrast CT scan. Please note that all CT scans at this facility use dose modulation, iterative reconstruction, and/or weight-based dosing when appropriate to reduce radiation dose to as low as reasonably achievable. Dictated by Rowdy Vargas MD @ 09/11/2023 4:05:19 PM (Electronically Signed)
--- NOTE | 2023-09-11 15:19 | ED.SEIZURE ---
HPI - Seizure General Chief Complaint: Seizure Stated Complaint: Seizure Time Seen by Provider: 09/11/23 14:32 History of Present Illness HPI Narrative: This 68-year-old male comes in by ambulance after a loss of consciousness that sounds like seizure activity. The patient states that he was walking into his house and his vision began to change and then the next thing he knows he woke up on the floor. His heard some commotion and came to see him soon after this began. She noted tonic clonic activity and states that this lasted for less than a minute. He then had sonorous breathing and began to recover about fiber 10 minutes later. The patient did hit his head and has an abrasion on the top of his head. Currently has no complaints. He has had similar episodes in the past that were suspicious for seizure activity. He states that he has sensitivity to knee on lights that in the past has caused similar circumstances. He has not seen a neurologist. He was seen here about 20 days ago with perhaps similar circumstances that were not deemed to be a seizure however known observed whether he had postictal symptoms. At that time CT imaging of his head and labs returned with no acute findings to explain these symptoms. The patient has seen a psychiatrist as he has anxiety and panic symptoms. He has been on Effexor about a year ago when I saw him in [place] recommended he discontinue this medicine as it can lower his seizure threshold. About 7 months ago he saw a psychiatrist who started him on bupropion, clonazepam, and trazodone. He has discontinued seeing this psychiatrist and states that he is tapering off of clonazepam. He is now taking a half a tablet every other evening. He continues to take bupropion. Seizure History: Yes (per EMS, similar episode before) Related Data Home Medications Medication Instructions Recorded Confirmed alendronate 70 mg tablet mg PO 10/27/22 chlorthalidone 25 mg tablet mg 10/27/22 levothyroxine 175 mcg tablet 175 mcg PO DAILY 10/27/22 08/22/23 (Synthroid) losartan 100 mg tablet 100 mg PO DAILY 10/27/22 08/22/23 pramipexole 0.125 mg tablet mg 10/27/22 ropinirole 0.25 mg tablet 3 mg PO DAILY 10/27/22 08/22/23 ropinirole 1 mg tablet mg 12/08/22 rosuvastatin 20 mg tablet 20 mg PO DAILY 10/27/22 08/22/23 trazodone 50 mg tablet mg 10/27/22 venlafaxine 150 mg mg PO 10/27/22 capsule,extended release 24 hr venlafaxine 37.5 mg mg PO 10/27/22 capsule,extended release 24 hr bupropion HCl 300 mg 24 hr tablet, 300 mg PO DAILY 08/22/23 08/22/23 extended release clonazepam 0.5 mg tablet 0.5 mg PO QPM 08/22/23 08/22/23 fluvoxamine 100 mg 200 mg PO DAILY 08/22/23 08/22/23 capsule,extended release 24 hr hydrochlorothiazide 12.5 mg tablet 25 mg PO DAILY 08/22/23 08/22/23 meloxicam 15 mg tablet 15 mg PO DAILY PRN 08/22/23 08/22/23 propranolol 20 mg tablet 20 mg PO BID 08/22/23 08/22/23 Previous Rx's Medication Instructions Recorded lorazepam 0.5 mg tablet (Ativan) 0.5 mg PO BID PRN #10 tabs 10/27/22 levetiracetam 1,000 mg tablet 1,000 mg PO BID #60 tabs 09/11/23 (Keppra) Allergies Allergy/AdvReac Type Severity Reaction Status Date / Time No Known Drug Allergies Allergy Verified 09/11/23 14:30 Review of Systems Status of ROS: Reports: 10 or more systems reviewed and unremarkable except as noted in History and below Narrative: Constitutional: No fevers, no weight gain or loss. Eyes: No discharge. No vision changes. HENT: No congestion, no sore throat, no ear pain. Cardiovascular: No chest pain, no palpitations. Respiratory: No shortness of breath, no wheezes, no cough. Gastrointestinal: No abdominal pain, no vomiting, no diarrhea. Genitourinary: No dysuria, no hematuria. Musculoskeletal: Normal range of motion. Skin: No rashes, no pruritis. Neurological: No dizziness, weakness, sensory change, speech change. Recent loss of consciousness as described above. Endo/Heme/Allergies: No bruising or bleeding. No polydipsia. Pysch: no suicidality, no anxiety, no insomnia. All other systems reviewed and are negative. PFSH PFSH Social History Smoking Status: Never smoker Do you use any of these nicotine containing products: None Second hand tobacco smoke exposure: No How often do you have a drink containing alcohol: 4 or more times a week How many standard drinks containing alcohol do you have on a typical day: 1 or 2 How often do you have six or more drinks on one occasion: Daily or almost daily AUDIT-C Alcohol total score: 8 Non-prescribed substance use: marijuana (any form) service: No Exam Narrative: Exam Narrative: Constitutional: Well-developed, well-nourished, no acute distress. HEENT: Small superficial abrasion on the top of the head. No underlying hematoma. Neck: Normal range of motion. Nontender. Supple. Heart: Regular. No murmurs. Normal rate. Intact distal pulses. Lungs: Clear to auscultation. No chest discomfort. No wheezes, rhonchi, or rales. Abdomen: Normal bowel sounds. Nontender. No rebound tenderness. Genitalia: Deferred. Back: No midline tenderness. Normal range of motion. Extremities: Normal range of motion. No injury. Skin: Intact. No rash. Warm. No erythema or pallor. Neurologic: No altered sensation. No weakness. Alert and oriented. Psychiatric: No suicidality. No anxiety or depression. No insomnia. Nursing notes and vitals signs are reviewed. Const: Vital Signs, click to edit/add: Vital Signs - 24 hr 09/11/23 14:26 09/11/23 15:08 Temperature 97.7 F Pulse Rate 73 Pulse Rate [Right] 78 Respiratory Rate 18 14 Blood Pressure 125/83 Blood Pressure [Ri ght Upper Arm] 128/84 Pulse Oximetry 94 95 Oxygen Delivery Me thod Room Air Course Vital Signs Vital signs: Initial Vital Signs Temperature 97.7 F 09/11/23 14:26 Temperature Source Oral 09/11/23 14:26 Pulse Rate 78 09/11/23 14:26 Pulse Rhythm Regular, Regularly Irregular 09/11/23 14:26 Pulse Strength 3+ Normal 09/11/23 14:26 Respiratory Rate 18 09/11/23 14:26 Blood Pressure 128/84 09/11/23 14:26 Blood Pressure Mean 98 09/11/23 14:26 Blood Pressure Position Semi-Fowlers 09/11/23 14:26 Pulse Oximetry 94 09/11/23 14:26 Oxygen Delivery Method Room Air 09/11/23 14:26 Vital Signs Temperature 97.7 F 09/11/23 14:26 Pulse Rate 78 09/11/23 14:26 Respiratory Rate 18 09/11/23 14:26 Blood Pressure 128/84 09/11/23 14:26 Pulse Oximetry 94 09/11/23 14:26 Oxygen Delivery Method Room Air 09/11/23 14:26 Temperature 97.7 F 09/11/23 14:26 Pulse Rate 73 09/11/23 15:08 Respiratory Rate 14 09/11/23 15:08 Blood Pressure 125/83 09/11/23 15:08 Pulse Oximetry 95 09/11/23 15:08 Oxygen Delivery Method Room Air 09/11/23 14:26 MDM - Seizure MDM Narrative Medical decision making narrative: This 68-year-old male has been having dyskinesia and today his symptoms are classic for a tonic clonic seizure has his describes what happened. He did have what sounded like a seizure about a year ago at which time I saw him here in the ER. He was instructed to follow-up with neurology but instead made connection with a psychiatrist as he states that he has panic episodes. He is on bupropion and is tapering off of clonazepam. He does not care for these medicines as they made him sedated. He is not taking any anti seizure medicines. The patient did hit his head and has a small abrasion on the top of his head. A CT scan of his head is obtained which shows no acute findings. The patient did have lab results about a week or so ago which returned with normal findings. I did not recheck labs today. I did consult with neurologist director of cardiopulmonary services at the [facility] who stated that he should follow up with his psychiatrist with regard to buproprion. The neurologist did not think that this medicine was the a significant contributor to lowering his seizure threshold. The patient did receive a loading dose of Keppra 1500 mg and will be prescribed Keppra 1000 mg b.i.d.. A follow-up appointment with neurology clinic is still advised despite the lengthy wait that his is concerned about. Imaging Data CT scan - head: Radiologist's impression: No acute intracranial abnormality on this noncontrast CT scan. ECG Data Attestation: I personally reviewed and interpreted this ECG as follows: Interpretation: Normal sinus rhythm. There are frequent premature ventricular complexes. Rate is 76 beats per minute. There are no ST or T-wave abnormalities. Discharge Plan Discharge Clinical Impression: Generalized seizure Patient Disposition: Home w/ Parent or Adult Condition: Improved Additional Instructions: Take Keppra 1000 mg twice daily as prescribed. Follow up with neurology clinic next available appointment. Follow-up with primary physician for ongoing medication management. Return if recurrent or worsening symptoms happen. Prescriptions: New levetiracetam [Keppra] 1,000 mg tablet 1,000 mg PO BID Qty: 60 2RF No Action levothyroxine [Synthroid] 175 mcg tablet 175 mcg PO DAILY venlafaxine 37.5 mg capsule,extended release 24hr PO ropinirole 1 mg tablet trazodone 50 mg tablet alendronate 70 mg tablet PO venlafaxine 150 mg capsule,extended release 24hr PO chlorthalidone 25 mg tablet ropinirole 0.25 mg tablet 3 mg PO DAILY pramipexole 0.125 mg tablet losartan 100 mg tablet 100 mg PO DAILY rosuvastatin 20 mg tablet 20 mg PO DAILY lorazepam [Ativan] 0.5 mg tablet 0.5 mg PO BID PRNQty: 10 0RF propranolol 20 mg tablet 20 mg PO BID fluvoxamine 100 mg capsule,extended release 24hr 200 mg PO DAILY bupropion HCl 300 mg tablet extended release 24 hr 300 mg PO DAILY meloxicam 15 mg tablet 15 mg PO DAILY PRN clonazepam 0.5 mg tablet 0.5 mg PO QPM hydrochlorothiazide 12.5 mg tablet 25 mg PO DAILY Follow Up/Referrals: Astrid Dasilva DO [Primary Care Provider] - Stand Alone Forms: [facility] Info Instructions
[2023-09-11 15:35] VITALS: BP 119/88; PULSE 72; RESP 14; O2SAT 91
--- NOTE | 2023-09-11 15:44 | ED.NURSE ---
Ice pack provided, per family request.
[2023-09-11 16:02] VITALS: BP 121/78; PULSE 69; RESP 12; O2SAT 94
[2023-09-11 16:32] VITALS: BP 125/85; PULSE 66; RESP 12; O2SAT 95
[2023-09-11] MEDS: levETIRAcetam 500 MG TABLET 1500 MG PO (17:00)
[2023-09-11 17:27] VITALS: BP 128/84; PULSE 78; RESP 12; TEMP 36.5
== END 2023-09-11 17:28 | disposition home or self-care (01) ==
PROVIDERS: Emergency Provider Emergency Medicine Emergency Medical Services; PCP Family Medicine
DX: G40.89 Other seizures (principal)
CPT/HCPCS: 70450; 93005; 99284; A9270

== ENCOUNTER 2023-09-14 09:54 | Emergency (ER) | payer MEDICARE, SELFPAY ==
[2023-09-14 10:17] VITALS: BP 118/75; PULSE 63; RESP 16; TEMP 36.3; O2SAT 98; BMI 24.4
[2023-09-14 12:03] VITALS: PULSE 66; O2SAT 99
--- NOTE | 2023-09-14 14:00 | ED_ITS ---
HPI - General Adult General Date Seen: 09/14/23 Chief complaint: GI Bleed Stated complaint: Blood in stool Time Seen by Provider: 09/14/23 11:11 History of Present Illness HPI narrative: This is a pleasant 68-year-old gentleman accompanied to the ER this afternoon by his for evaluation of bright red blood per rectum and rectal pain. He has a past medical history including anxiety and panic disorder. He is on multiple medications for that, prescribed recently by a psychiatrist in the [facility]. He feels like he has been having a lot of side effects from those medications so has been weaning himself off some of the meds, and plans to see a new [facility] hiatrist coming up soon. On Monday he had an event that might have been a seizure (or may have been a panic related convulsion) and was seen here in the ER. He was started on levetiracetam for that potential seizure disorder and has an appointment on Monday for a recheck with a neurologist for further testing. Since starting the Keppra he has developed constipation. He suspects of side effect of the medicine. No previous history of constipation in the generally eats a good diet with lots of fiber. He has been having rectal fullness and urge to defecate, with a lot of difficulty. His right reports that he had several hours on the toilet Monday morning straining to pass stool. She gave him MiraLax and then Dulcolax before he finally passed a large firm brown stool. His rectum was uncomfortable when he passed. Again this morning he had a lot of rectal fullness and urge to defecate, with difficulty passing his stool. He had been straining for a while on the toilet and then eventually did pass a large BM. When the BM past he did notice a little bit of bright red liquid blood without clots that dripped into the toilet. He subsequently noticed bright red blood on the toilet paper when he wiped. Overall perhaps a tbsp total blood volume. Since then no further bleeding. He does have a little bit of residual rectal soreness but no pain. No abdominal pain. He is not lig htheaded. He has no previous history of GI bleeding. He is not anticoagulated. No other unusual bleeding or bruising. Related Data Home Medications Medication Instructions Recorded Confirmed alendronate 70 mg tablet 70 mg PO QWEEK 12/08/22 10/26/23 levothyroxine 175 mcg tablet 150 mcg PO DAILY 10/27/22 09/14/23 (Synthroid) losartan 100 mg tablet 100 mg PO DAILY 10/27/22 09/14/23 pramipexole 0.125 mg tablet mg 10/27/22 ropinirole 0.25 mg tablet 3 mg PO DAILY 10/27/22 09/14/23 rosuvastatin 20 mg tablet 20 mg PO DAILY 10/27/22 09/14/23 bupropion HCl 300 mg 24 hr tablet, 300 mg PO DAILY 08/22/23 09/14/23 extended release clonazepam 0.5 mg tablet 0.5 mg PO QPM 08/22/23 09/14/23 fluvoxamine 100 mg 200 mg PO DAILY 08/22/23 09/14/23 capsule,extended release 24 hr meloxicam 15 mg tablet 15 mg PO DAILY PRN 08/22/23 09/14/23 propranolol 20 mg tablet 20 mg PO BID 08/22/23 09/14/23 cyanocobalamin (vitamin B-12) 1,000 mcg IM Q4W 09/14/23 09/14/23 1,000 mcg/mL injection solution mirtazapine 15 mg tablet 10 mg PO DAILY 09/14/23 09/14/23 Previous Rx's Medication Instructions Recorded levetiracetam 1,000 mg tablet 1,000 mg PO BID #60 tabs 09/11/23 (Keppra) Allergies Allergy/AdvReac Type Severity Reaction Status Date / Time No Known Drug Allergies Allergy Verified 09/14/23 10:09 [facility] Social History Smoking Status: Never smoker Do you use any of these nicotine containing products: None Second hand tobacco smoke exposure: No How often do you have a drink containing alcohol: 4 or more times a week How many standard drinks containing alcohol do you have on a typical day: 1 or 2 How often do you have six or more drinks on one occasion: Daily or almost daily AUDIT-C Alcohol total score: 8 Non-prescribed substance use: marijuana (any form) service: No Exam Narrative: Exam Narrative: Constitutional: Appears well-developed and well-nourished. Alert. Conversant. Non toxic. HENT: Head: Atraumatic. Nose: Nose normal. Mouth/Throat: Oral mucosa is clear and moist. no trismus. Pharynx normal. Tonsils symmetric. No tonsillar enlargement, erythema, or exudate. Eyes: Conjunctivae normal. EOM normal. Pupils equal, round, and reactive to light. No scleral icterus. Neck: Normal range of motion. Neck supple. No tracheal deviation present. Cardiovascular: Normal rate, regular rhythm. No gallop. No friction rub. No murmur heard. Symmetric radial artery pulses Pulmonary/Chest: Effort normal. No stridor. No respiratory distress. No wheezes. No rales. No rhonchi . No tenderness. Abdominal: Soft. Bowel sounds normal. No distension. No mass. No tenderness. No rebound. No guarding. Rectal: Normal gluteal cleft. Normal rectal tone. There is a 3-4 mm fissure in the posterior midline. There is also a small skin tag there but no hemorrhoid. No active bleeding. Internal KIEL deferred because it would trigger discomfort with the fissure. Musculoskeletal: RUE: Normal range of motion. No tenderness. No deformity LUE: Normal range of motion. No tenderness. No deformity RLE: Normal range of motion. No edema. No tenderness. No deformity LLE: Normal range of motion. No edema. No tenderness. No deformity Neurological: Alert and oriented to person, place, and time. Normal strength. CN II-VII intact. No sensory deficit. GCS eye subscore is 4. GCS verbal subscore is 5. GCS motor subscore is 6. Normal coordination Skin: Skin is warm and dry. No rash noted. No pallor. Normal capillary refill. Psychiatric: Normal mood. Normal affect. Const: Vital Signs, click to edit/add: Vital Signs - 24 hr 09/14/23 10:17 09/14/23 12:03 Temperature 97.3 F L Pulse Rate [Pulse Oximeter] 63 66 Respiratory Rate 16 Blood Pressure [Le ft Upper Arm] 118/75 Pulse Oximetry 98 99 Oxygen Delivery Me thod Room Air Room Air Course Vital Signs Vital signs: Initial Vital Signs Temperature 97.3 F L 09/14/23 10:17 Temperature Source Temporal Artery Scan 09/14/23 10:17 Pulse Rate 63 09/14/23 10:17 Pulse Rhythm Regular 09/14/23 10:17 Pulse Strength 3+ Normal 09/14/23 10:17 Respiratory Rate 16 09/14/23 10:17 Blood Pressure 118/75 09/14/23 10:17 Blood Pressure Mean 89 09/14/23 10:17 Blood Pressure Position Sitting 09/14/23 10:17 Pulse Oximetry 98 09/14/23 10:17 Oxygen Delivery Method Room Air 09/14/23 10:17 Vital Signs Temperature 97.3 F L 09/14/23 10:17 Pulse Rate 63 09/14/23 10:17 Respiratory Rate 16 09/14/23 10:17 Blood Pressure 118/75 09/14/23 10:17 Pulse Oximetry 98 09/14/23 10:17 Oxygen Delivery Method Room Air 09/14/23 10:17 Temperature 97.3 F L 09/14/23 10:17 Pulse Rate 66 09/14/23 12:03 Respiratory Rate 16 09/14/23 10:17 Blood Pressure 118/75 09/14/23 10:17 Pulse Oximetry 99 09/14/23 12:03 Oxygen Delivery Method Room Air 09/14/23 12:03 Medical Decision Making MDM Narrative Medical decision making narrative: This is a pleasant 68-year-old gentleman who presents to the ER today with a primary concern of bright red blood per rectum. He has been suffering from constipation since Monday and passed a very large hard stool this morning associated with the blood. On my clinical exam he does have evidence for a rectal fissure in the posterior midline. At this point it is highly suspicious the rectal fissure is the cause for his rectal pain and bleeding. He describes only a small volume of blood loss. He is hemodynamically stable. With a [place] is a source for bleeding, we Would not expect any life-threatening ongoing bleeding. At this point in think he needs hemoglobin monitoring, or admission for hemodynamic monitoring. We can treat supportively at home. We discussed the regimen of laxatives and stool softeners to keep his stool soft, roughly the consistency of pudding. We discussed perirectal care and Sitz baths. We discussed anticipated course of fissure which should heal over the next couple of days of we can soften his stools. He is not anticoagulated. No history of bleeding problems in his family. No history of anemia. Most recent hemoglobin on 08/22 was 15.9. Patient suspects that his constipation is possible bleed triggered by his new anti seizure medication Keppra. My preference indicates 1-2% of patients on Keppra will developed constipation as a side effect. It sounds like it is unclear whether not he had a true seizure or not. Our plan would be to have him continue on the Keppra at least for now until he can see his new neurologist on Monday for further workup. Neurology can help him determine whether not he needs Keppra for long-term. He also endorses symptoms of anxiety recently. He is planning to wean himself off clonazepam but had not started the wean as of Monday when his potential seizure happened. Therefore would doubt that this was a benzo withdrawal seizure. He is not otherwise displaying tremulousness, tachycardia, undo anxiety to suggest benzo withdrawal, alcohol withdrawal, or other clear medication side effect this time. Discharge Plan Discharge Clinical Impression: Acute anal fissure, Constipation Patient Disposition: Home, Self-Care Condition: Stable Instructions: Constipation (DC), Anal Fissure (ED) Additional Instructions: Please come back to the ER right away if you have worsening bleeding, worsening pain, abdominal pain, lightheadedness, or any problems. We suspect that the bleeding from her fissure will get better over the next couple of days. Please try to keep her rectum clean by soaking in the bath tub after each BM or washing in the shower. Keep her stools soft (consistency of pudding or ice cream) by using proper diet, MiraLax, another stool softener such as Dulcolax or Colace. If your stools become too watery, decrease the amount of stool softeners you are taking. Continue Keppra for now. Please follow-up with her neurologist on Monday for further testing to determine whether not you need Keppra for the long-term. Prescriptions: No Action levothyroxine [Synthroid] 175 mcg tablet 150 mcg PO DAILY alendronate 70 mg tablet 70 mg PO QWEEK ropinirole 0.25 mg tablet 3 mg PO DAILY pramipexole 0.125 mg tablet losartan 100 mg tablet 100 mg PO DAILY rosuvastatin 20 mg tablet 20 mg PO DAILY levetiracetam [Keppra] 1,000 mg tablet 1,000 mg PO BID Qty: 60 2RF mirtazapine 15 mg tablet 10 mg PO DAILY cyanocobalamin (vitamin B-12) 1,000 mcg/mL solution 1,000 mcg IM Q4W propranolol 20 mg tablet 20 mg PO BID fluvoxamine 100 mg capsule,extended release 24hr 200 mg PO DAILY bupropion HCl 300 mg tablet extended release 24 hr 300 mg PO DAILY meloxicam 15 mg tablet 15 mg PO DAILY PRN clonazepam 0.5 mg tablet 0.5 mg PO QPM Follow Up/Referrals: Astrid Dasilva DO [Primary Care Provider] - Stand Alone Forms: [facility] Info Instructions
== END 2023-09-14 12:05 | disposition home or self-care (01) ==
LOC: ED 11:57
PROVIDERS: Emergency Provider Emergency Medicine; PCP Family Medicine
DX: K60.2 Anal fissure, unspecified (principal); K59.00 Constipation, unspecified
CPT/HCPCS: 99283

== ENCOUNTER 2025-09-12 08:59 | Outpatient (CLI) | payer MEDICARE, BC, SELFPAY ==
--- NOTE | 2025-09-12 11:08 | P.ANES_ITS ---
Anesthesia Charges Start Date/Time Anesthesia Start Date: 09/12/25 Anesthesia Start Time: 10:38 Stop Date/Time Anesthesia Stop Date: 09/12/25 Anesthesia Stop Time: 11:06 Coding CPT Codes CPT Codes: ANES LWR INTST NDSC NOS - 14012 ([id number]) P3 - PATIENT W/SEVERE SYS DISEASE, QZ - QUALIFICATIONS EXAMINER SVC W/O NEWSPAPER COPY EDITOR BY
--- NOTE | 2025-09-12 11:08 | W.ANESCHARGE ---
Anesthesia Charges Start Date/Time Anesthesia Start Date: 09/12/25 Anesthesia Start Time: 10:38 Stop Date/Time Anesthesia Stop Date: 09/12/25 Anesthesia Stop Time: 11:06 Coding CPT Codes CPT Codes: ANES LWR INTST NDSC NOS - 46370 ([id number]) P3 - PATIENT W/SEVERE SYS DISEASE, QZ - SLOT TECHNICIAN SVC W/O JEWELRY BENCH WORKER BY
== END 2025-09-12 09:00 | disposition home or self-care (01) ==
LOC: OP CLINIC 09:03
PROVIDERS: PCP Family Medicine; Visit Provider Internal Medicine Gastroenterology
DX: Z12.11 Encounter for screening for malignant neoplasm of colon (principal); Z86.0101 Personal history of adenomatous and serrated colon polyps; D12.4 Benign neoplasm of descending colon; Q43.8 Other specified congenital malformations of intestine
CPT/HCPCS: 00811; 45385; 88305; J2704